=== PATIENT | male | born 1950 | race Caucasian/White ===

== ENCOUNTER 2017-04-09 14:40 | Emergency (ER) | payer MEDICARE ==
[2017-04-09] MEDS ORDERED: Lidocaine 2% W/EPI 1:100,000* 20 ML MDV INJ ONE ×2 (16:17→16:30)
--- NOTE | 2017-04-09 16:22 | UC ---
Epistaxis Nasal HPI - HPI Summary HPI Summary: 67 year old male with history of DVT/PE on coumadin, derrick here with a nose bleed that started few hours [employer]. Patient reports he was walking when all of sudden his nose started bleeding from the right nostril. He denies any fall, trauma or any other complaints. No recent changes in coumadin dose. He took ibuprofen and tylenol for his ankle pain yesterday. - History of Current Complaint Chief Complaint: UCGeneralIllness Stated Complaint: NOSE BLEED Onset/Duration: Sudden Onset, Lasting Hours Timing: Constant Severity Initially: Mild Alleviating Factor(s): Ice Associated Signs And Symptoms: Positive: Negative Related Hx: Anticoagulants - Allergies/Home Medications Allergies/Adverse Reactions: Allergies Allergy/AdvReac Type Severity Reaction Status Date / Time Methimazole Allergy Unknown Verified 04/09/17 14:58 Reaction Details Home Medications: Home Medications Acetaminophen [Acetaminophen Extra Stren] 1,000 mg PO Q6H PRN 04/09/17 [History Confirmed 04/09/17] Ibuprofen [Ibuprofen 200] 800 mg PO Q6H PRN 04/09/17 [History Confirmed 04/09/17 ] Levothyroxine TAB* [Synthroid TAB*] 75 mcg PO 0800 04/09/17 [History Confirmed 04/09/17] PMH/Surg Hx/FS Hx/Imm Hx - Surgical History Surgical History: None - Social History Alcohol Use: Daily Alcohol Amount: cocktail Substance Use Type: None Smoking Status (MU): Former Smoker - Immunization History Most Recent Influenza Vaccination: fall 2016 Review of Systems Constitutional: Negative Skin: Negative Eyes: Negative ENT: Negative, Epistaxis Respiratory: Negative Cardiovascular: Negative Gastrointestinal: Negative Genitourinary: Negative Motor: Negative Neurovascular: Negative Musculoskeletal: Negative Neurological: Negative Psychological: Negative All Other Systems Reviewed And Are Negative: Yes Physical Exam Triage Information Reviewed: Yes Appearance: Well-Appearing, No Pain Distress Vital Signs: Initial Vital Signs Temp 36.2 C 04/09/17 14:49 Pulse 72 04/09/17 14:49 Resp 16 04/09/17 14:49 BP 150/92 04/09/17 14:49 Pulse Ox 97 04/09/17 14:49 Vital Signs Reviewed: Yes Eyes: Positive: Other: - bleeding oozing through right lower eye lid tracking up from epistaxis ENT Exam: Other - Right nostril with blood and clots No active bleeding seen in the OP Neck exam: Normal Respiratory Exam: Normal Cardiovascular Exam: Normal Abdominal Exam: Normal Musculoskeletal Exam: Normal Epistaxis Nasal Course/Dx - Course Course Of Treatment: Epistaxis. Pressure with tongue depressors did not lead to hemostasis. Merosol tampon placed over right nostril leading to hemostatsis soaked in blood over course of one hour. Lido with epi impregnated gauze applied and observed for 30 minutes. Given concern for rebleed, merosol tampon placed and dced with ENT follow up or return to the for removal of merosol tampon, - Differential Dx/Diagnosis Differential Diagnosis/HQI/PQRI: Epistaxis Provider Diagnoses: Epistaxis Discharge - Discharge Plan Condition: Good Disposition: HOME Prescriptions: Cephalexin CAP* [Keflex CAP*] 500 mg PO QID #40 cap Patient Education Materials: Nosebleed (ED) Referrals: Wolf Ga MD [Medical Doctor] - Melecio Holliday [Medical Doctor] - Jim Pérez MD [Primary Care Provider] - Clif Nguyen MD [Medical Doctor] - Additional Instructions: No nose blowing. Do not move the nasal packing until you are seen by ENT doctor. Go to the ED for bleeding through the nasal packing, fever or any life threatening symptoms. Stop taking ibuprofen as this might increase risk of bleeding.
[2017-04-09] MEDS ORDERED: Lidocaine 2% W/EPI 1:100,000* 20 ML MDV ONE (16:25)
[2017-04-09 16:59] VITALS: BP 158/98
[2017-04-09] MEDS ORDERED: Cephalexin CAP* 500 MG PO ONE (17:44)
== END 2017-04-09 18:16 | disposition home or self-care (01) ==
LOC: UCEAST 14:40
DX: R04.0 Epistaxis (principal); Z86.718 Personal history of other venous thrombosis and embolism; Z79.01 Long term (current) use of anticoagulants; E06.3 Autoimmune thyroiditis; Z87.891 Personal history of nicotine dependence
CPT/HCPCS: 30901; 99212; A9270-GY; G0463